=== PATIENT | male | born 1985 | race Caucasian/White ===

== ENCOUNTER 2018-07-08 18:02 | Emergency (ER) | payer SELFPAY ==
[~2018-07-08 18:02] MED LIST: CIPR-344 PO; HYDR-653 PO; METR-1 PO; OXYC-865 PO; PHEN200T32 PO
--- NOTE | 2018-07-08 18:06 | ER Report ---
History and Physical Time Seen By MD: 18:06 (GARRY TEJEDA DO) HPI/ROS CHIEF COMPLAINT: Right ankle injury HISTORY OF PRESENT ILLNESS: 32-year-old male was walking on some ice [place] when he slipped and fell. He notes his ankles rotated outward to 90 from normal. He's having severe ankle pain. He rates it as a 9/10 throbbing in nature. He is unable to bear any weight on it. He denies any other injuries. He denies head impact, neck pain, chest pain, shortness of breath. Patient has an abrasion to his left knee. Patient reports his last tetanus shots up-to-date. (GARRY TEJEDA DO) Allergies: Coded Allergies: No Known Drug Allergies (Unverified , 07/08/18) Home Meds Active Scripts Hydrocodone Bit/Acetaminophen (HYDROCODON-ACETAMINOPHEN 5-325) 1 Each Tablet, 1- 2 EACH PO Q4-6H PRN for PAIN, #20 TAKE ONE TABLET BY MOUTH EVERY 4-6 HOURS NEEDED FOR PAIN Prov:GARRY TEJEDA DO 07/08/18 Reviewed Nurses Notes: Yes Old Medical Records Reviewed: Yes (GARRY TEJEDA DO) Hx Smoking: Yes Smoking Status: Current: Some Days Smoker Exposure to Second Hand Smoke?: Yes Hx Substance Use Disorder: No Hx Alcohol Use: No (GARRY TEJEDA DO) Constitutional Vital Sign - Last 24 Hours 07/08/18 07/08/18 07/08/18 07/08/18 18:11 18:15 18:30 18:32 Temp 98.0 Pulse 108 94 Resp 16 B/P (MAP) 148/101 (117) 148/101 126/89 (101) Pulse Ox 97 98 O2 Delivery Room Air 07/08/18 19:00 B/P (MAP) 135/94 (108) ([facility] Physical Exam Vital signs stable, afebrile, pulse ox normal General Appearance: The patient is alert, has no immediate need for airway protection and no current signs of toxicity. Palpation of the head and neck reveal no tenderness or trauma Eyes: Pupils equal and round no injection. Respiratory: Chest is non tender, lungs are clear to auscultation. No chest wall tenderness Cardiac: regular rate and rhythm Gastrointestinal: Abdomen is soft and non tender, no masses, bowel sounds normal. Musculoskeletal: Neck: Neck is supple and non tender. No tenderness in the midline Extremities have full range of motion and are non tender. There is obvious deformity of the right ankle with external rotation to 90. The foot is neurovascularly intact in all digits. Skin: No rashes or lesions. DIFFERENTIAL DIAGNOSIS: After history and physical exam differential diagnosis was considered for sprain, strain, fracture, dislocation, contusion (GARRY TEJEDA DO) Medical Decision Making EKG/Imaging Imaging X-ray: Three-view right ankle was obtained. I viewed the images myself on the PACS system. My interpretation of the images is: Trimalleolar fracture with posterior and lateral dislocation of the talus. The radiologist interpretation had no clinically significant variation from this interpretation. X-ray: Two-view postreduction right ankle was obtained. I viewed the images m yself on the PACS system. My interpretation of the images is: There is still posterior dislocation of the talus.. The radiologist interpretation had no clinically significant variation from this interpretation. X-ray: Two-view postreduction right ankle was obtained. I viewed the images myself on the PACS system. My interpretation of the images is: There is normal alignment. The radiologist interpretation had no clinically significant variation from this interpretation. (GARRY TEJEDA DO) ED Course/Re-evaluation Clinical Indication for ER IV: Hydration, IV Access ED Course Patient was admitted to an examination room. H&P was done. The differential diagnoses was considered. On clinical examination. Patient is obvious dislocation and deformity of his right ankle. Mechanism of injury would suggest a trimalleolar fracture. Diagnostic x-rays confirm findings. The right foot is neurovascularly intact. Procedure: Procedural sedation. A pre-sedation evaluation was completed on the patient at 1935. Patient is an appropriate candidate for procedural sedation. The risks of the sedation were discussed with the patient. A time out was completed. The patient was reevaluated immediately prior to initiation of sedation. The patient was sedated with ketamine 100 mg. The patient was monitored with continuous pulse oximetry and material handler 1st shift. There were no complications and no significant hypoxemia. I remained at the bedside for the sedation. The total time I spent in the procedural sedation was 20 minutes. Post sedation evaluation: Patient was alert and cooperative, hemodynamically stable with appropriate respiratory status, temperature and pain control without ongoing nausea and vomiting. Procedure: Procedural sedation. A pre-sedation evaluation was completed on the patient at 2045. Patient is an appropriate candidate for procedural sedation. The risks of the sedation were discussed with the patient. A time out was completed. The patient was reevaluated immediately prior to initiation of sedation. The patient was sedated with propofol 150 mg IV. The patient was monitored with continuous pulse oximetry and material handler 1st shift. There were no complications and no significant hypoxemia. I remained at the bedside for the sedation. The total time I spent in the procedural sedation was 20 minutes. Post sedation evaluation: Patient was alert and cooperative, hemodynamically stable with appropriate respiratory status, temperature and pain control without ongoing nausea and vomiting. Decision to Disposition Date: Jul 08, 2018 Decision to Disposition Time: 19:08 (GARRY TEJEDA DO) ED Course Procedure: Dislocation and trimalleolar fracture reduction. The right ankle was reduced in the usual fashion without complications. Post reduction the patient's neurovascular exam is normal. Post reduction x-ray demonstrates reduction of the joint to the anatomic position. The procedure was performed by myself and Dr. Tejeda. ([facility]) Depart Departure Latest Vital Signs Vital Signs Date Time Temp Pulse Resp B/P (MAP) Pulse Ox O2 Delivery O2 Flow Rate FiO2 07/08/18 19:00 135/94 (108) 07/08/18 18:32 94 98 07/08/18 18:15 98.0 16 Room Air ([facility] Impression: Primary Impression: Trimalleolar fracture of ankle, closed Additional Impression: Ankle dislocation Condition: Improved Disposition: HOME OR SELF-CARE Referrals: MAIKEL HERRERA MD,ALLYSON Santana MD New Scripts Hydrocodone Bit/Acetaminophen (HYDROCODON-ACETAMINOPHEN 5-325) 1 Each Tablet 1-2 EACH PO Q4-6H PRN for PAIN, #20 TAKE ONE TABLET BY MOUTH EVERY 4-6 HOURS NEEDED FOR PAIN Prov: GARRY TEJEDA DO 07/08/18 Patient Instructions: Ankle Fracture (DC) Additional Instructions: No weightbearing, you must use crutches Contact [facility] tomorrow for a urgent follow-up appointment on Monday or Monday. Call [phone], your ankle most likely need surgery Problem Qualifiers Primary Impression: Trimalleolar fracture of ankle, closed Encounter type: initial encounter Laterality: right Qualified Codes: S82.851A - Displaced trimalleolar fracture of right lower leg, initial encounter for closed fracture Additional Impression: Ankle dislocation Encounter type: initial encounter Laterality: right Qualified Codes: S93.04XA - Dislocation of right ankle joint, initial encounter GARRY TEJEDA DO Jul 08, 2018 18:06 [facility]- Jul 08, 2018 20:05
[2018-07-08] MEDS ORDERED: ONDANSETRON 4 MG/2 ML VIAL IVP ONE (18:15)
[2018-07-08] MEDS ORDERED: fentaNYL CITR 100 MCG/2 ML AMP IVP ONE ×2 (18:15→20:55)
[2018-07-08] MEDS ORDERED: LOR5/325 PO (19:09)
[2018-07-08] MEDS ORDERED: KETAMINE HCL-NS 50 MG/5 ML SYR IVP ONE (19:20)
--- NOTE | 2018-07-08 19:29 | RADIOLOGY IMAGING REPORT ---
FACILITY: [facility] - [place], [place] PATIENT NAME: Dano Garza : 1985 MR: [id number] V: [id number] EXAM DATE: ORDERING PHYSICIAN: GARRY BUNCH TECHNOLOGIST: Location: [facility] Patient: Dano Garza : 1985 Visit/Account:[id number] Date of Sevice: 07/08/2018 3 views right ankle INDICATION: Fall. Ankle pain and deformity. COMPARISON: None Available FINDINGS: 3 views of the right ankle are obtained. There is a posterior tibiotalar joint dislocation identified . In addition to the alignment abnormality, there is a trimalleolar fracture pattern identified. An o bliquely oriented fracture is seen to involve the distal shaft of the fibula extending to the fibular malleolus with medial and posterior displacement of the distal fracture fragment. There is a comminu glenny fracture involving the medial malleolus and there is felt to be an impacted fracture of the poste rior malleolus with posterior and superior displacement of the fracture fragment. There is soft tissu e swelling surrounding the ankle and there is a joint effusion. No additional fractures. IMPRESSION: 1. Posterior right tibiotalar joint dislocation with a trimalleolar fracture as detailed above. 2. Soft tissue swelling with a joint effusion. Report Dictated By: Kenn Sheehan at 07/08/2018 7:22 PM Report E-Signed By: Kenn Sheehan at 07/08/2018 7:26 PM WSN:[id number]
[2018-07-08] MEDS ORDERED: NS(*) 0.9% 1000 ML BAG 1,000 ML IV ONE (19:35)
[2018-07-08] MEDS ORDERED: NS(*) 0.9% 500 ML BAG 500 ML ONE (19:37)
[2018-07-08] MEDS ORDERED: ACET/HYDROC 5/325MG TH ER ONLY 2 TAB/BOTTLE PO ONE ×2 (20:10)
[2018-07-08] MEDS ORDERED: NS(*) 0.9% 500 ML BAG 500 ML IV ONE (20:30)
--- NOTE | 2018-07-08 20:30 | RADIOLOGY IMAGING REPORT ---
FACILITY: [facility] - [place] PATIENT NAME: Dano Garza : 1985 MR: [id number] V: [id number] EXAM DATE: [id number] ORDERING PHYSICIAN: GARRY BUNCH TECHNOLOGIST: Location: [facility] Patient: Daon Garza : 1985 Visit/Account:[id number] Date of Sevice: 07/08/2018 EXAMINATION: Right ankle 2 views HISTORY: Post reduction COMPARISON: Prior study of earlier today. FINDINGS: No significant change since the prior exam. There is persistent posterior dislocation of the talus r elative to the distal tibia. Stable displaced fractures of the medial and lateral malleoli as well a s the posterior malleolus of the distal tibia. No other new osseous findings. Surrounding soft tissue swelling with new overlying splint material. IMPRESSION: No change from the prior exam. Trimalleolar fracture of the right ankle with stable pos terior dislocation of the talus relative to the distal tibia. Report Dictated By: Sanford Valentin MD at 07/08/2018 8:24 PM Report E-Signed By: Sanford Valentin MD at 07/08/2018 8:26 PM WSN:[id number]
[2018-07-08] MEDS: PROPOFOL EMUL 10MG/ML 20 ML VL IVP ONE (20:46)
[2018-07-08] MEDS ORDERED: HYDROMORPHONE HCL 1 MG/ML SYRINGE IVP ONE (21:40)
--- NOTE | 2018-07-08 21:47 | RADIOLOGY IMAGING REPORT ---
FACILITY: [facility] PATIENT NAME: Dano Garza : 1985 MR: [id number] V: [id number] EXAM DATE: ORDERING PHYSICIAN: GARRY BUNCH TECHNOLOGIST: Location: [facility] - [place], [place] Patient: Dano Garza : 1985 Visit/Account:[id number] Date of Sevice: 07/08/2018 Examination: ANKLE 2 VIEW RIGHT Comparison: Earlier the same day. History: post reduction Findings: Significantly improved postreduction alignment of the tibiotalar joint; tibiotalar alignmen t is now within normal limits. Medial malleolus fracture is in near-anatomic alignment. Persistent but significantly decreased displacement of the right fibula diametaphysis oblique fractur e. Persistent but decreased mild displacement of the posterior malleolus fracture fragments. Diffuse soft tissue swelling. IMPRESSION: Improved postreduction alignment of the right ankle as described above. Report Dictated By: Edward Khan MD at 07/08/2018 9:39 PM Report E-Signed By: Edward Khan MD at 07/08/2018 9:43 PM WSN:[id number]
[2018-07-08 22:20] VITALS: BP 144/80
[2018-07-09] MEDS ORDERED: CEPH500T7 PO (20:08)
[2018-07-09] MEDS ORDERED: KET10 PO (20:09)
[2018-07-09] MEDS ORDERED: OXYC5TAB38 PO (20:13)
[2018-07-09] MEDS ORDERED: TRAM-420 PO (20:14)
[2018-07-09] MEDS ORDERED: ACET500T68 PO (20:15)
== END 2018-07-08 22:44 | disposition home or self-care (01) ==
LOC: ER 18:11
DX: S82.851A Displaced trimalleolar fracture of right lower leg, initial encounter for closed fracture (principal); S93.04XA Dislocation of right ankle joint, initial encounter; W00.0XXA Fall on same level due to ice and snow, initial encounter
CPT/HCPCS: 27818; 73600; 73610; 96361; 96374; 96375; 96376; 99152; 99153; 99285; J1170; J2405; J2704; J3010; J3490; J7030; J7040

== ENCOUNTER 2018-07-09 16:00 | Day surgery (SDC) | payer SELFPAY ==
[2018-07-09] VITALS (8 sets, daily range): BP systolic 141–164; BP diastolic 89–110
[~2018-07-09 16:00] MED LIST changes: +LOR5/325 PO
[2018-07-09] MEDS ORDERED: NORMOSOL R SOLN(*) 1000 ML BAG 1,000 ML IV PRN (16:40)
[2018-07-09] MEDS ORDERED: FAMOTIDINE 20 MG TAB PO ONE (16:40)
[2018-07-09] MEDS ORDERED: CELECOXIB 200 MG CAP PO ONE (16:40)
[2018-07-09] MEDS ORDERED: LIDOCAINE/SOD BICARB 8.4% SYR ID ONE (16:40)
[2018-07-09] MEDS ORDERED: ceFAZolin(*) 1 GM VIAL 1 GM in NS(*) 0.9% 100 ML ADDVANT BAG 100 ML IVPB ONE (16:40)
[2018-07-09] MEDS ORDERED: MIDAZOLAM 2 MG/2 ML VIAL IVP PRN (17:00)
[2018-07-09] MEDS: fentaNYL CITR 100 MCG/2 ML AMP IVP PRN ×2 (17:02→17:03)
[2018-07-09] MEDS ORDERED: fentaNYL CITR 250 MCG/5 ML AMP ONE (17:13)
[2018-07-09] MEDS ORDERED: PROPOFOL EMUL(*) 10MG/ML 20 ML 20 ML ONE (17:14)
[2018-07-09] MEDS ORDERED: LIDOCAINE 2% IV 100 MG/5ML SYR ONE (17:14)
[2018-07-09] MEDS ORDERED: EPINEPHrine HCL 1 MG/ML AMP ONE (17:15)
[2018-07-09] MEDS ORDERED: DEXAMETHASONE SOD PHOS 10MG/ML ONE (17:15)
[2018-07-09] MEDS ORDERED: ROPIVACAINE 0.5% 20 ML VIAL ONE (17:16)
[2018-07-09] MEDS ORDERED: ROPIVACAINE 0.2% 20 ML VIAL ONE (17:16)
[2018-07-09] MEDS ORDERED: LIDOCAINE MPF 1% 5 ML VIAL ONE (17:20)
[2018-07-09] MEDS ORDERED: DEXAMETHASONE SOD 4 MG/ML VIAL ONE (17:43)
[2018-07-09] MEDS ORDERED: ONDANSETRON 4 MG/2 ML VIAL ONE (17:43)
[2018-07-09] MEDS ORDERED: KETAMINE HCL 200 MG/20 ML MDV ONE ×2 (17:44→18:42)
[2018-07-09] MEDS ORDERED: KETOROLAC 30 MG/ML VIAL ONE (19:34)
[2018-07-09] MEDS ORDERED: PROMETHAZINE 25 MG/ML 1 ML AMP ONE (19:50)
[2018-07-09] MEDS ORDERED: fentaNYL CITR 100 MCG/2 ML AMP ONE (19:54)
[2018-07-09] MEDS ORDERED: CEPH500T7 PO (20:08)
[2018-07-09] MEDS ORDERED: KET10 PO (20:09)
[2018-07-09] MEDS ORDERED: OXYC5TAB38 PO (20:13)
[2018-07-09] MEDS ORDERED: TRAM-420 PO (20:14)
[2018-07-09] MEDS ORDERED: ACET500T68 PO (20:15)
[2018-07-09] MEDS ORDERED: ACETAMINOPHEN 500 MG TAB ONE (20:45)
[2018-07-09] MEDS ORDERED: oxyCODONE HCL 5 MG CAP ONE (20:45)
--- NOTE | 2018-07-10 02:38 | CARSON H&P ---
DATE OF ADMISSION: July 09, 2018 HISTORY OF PRESENT ILLNESS The patient is 32-year-old male who presented to the clinic with right ankle complaints. He presents in a splint. He reports yesterday afternoon he slipped off the curb on ice, injured his right ankle. There were deformity and pain. He was seen in the ER, where a closed reduction was performed of a trimalleolar fracture. ER report shows him to be neurovascularly intact. He denies any obvious numbness or tingling. He is in some mild distress, and he reports the ankle hurts a lot. He reports he had some oatmeal at 11 o'clock and has drunk some iced tea, about a cup through the afternoon when he takes his pills, and the last was at 3:30. ALLERGIES None reported. CURRENT MEDICATIONS Hydrocodone. PAST MEDICAL HISTORY Patient denies. PAST SURGICAL HISTORY Facial surgery for orbital fracture, February 2017. PHYSICAL EXAMINATION VITALS: Blood pressure is 128/81, weight 160, height 5 feet 11 inches. GENERAL: Patient is alert and oriented x3. He speaks clearly, answers questions appropriately. CHEST: Rises and falls with inspiration and expiration. No obvious wheezes or rales. ABDOMEN: Soft, nontender. Active bowel sounds noted. EXTREMITIES: Right lower extremity had a splint. This was opened up. There was some mild swelling, but there was no tenting of the skin. There are still some wrinkles around the ankle. The sensation is grossly intact. He can wiggle his toes. He did not want to move his ankle secondary to discomfort. He reports no knee complaints. Capillary refill is less than two seconds. Foot is warm. X-rays are reviewed. Trimalleolar fracture is noted of the right ankle. ASSESSMENT AND PLAN I went over the findings with him and his mother and friend. They voiced understanding. Recommending open reduction and internal fixation. They would like to do this as soon as possible. We discussed waiting to let some more of the swelling calm down, but I think this might actually increase over the next day or two. They understand the risks of proceeding early, with some skin issues, but they would like to have it fixed sooner rather than later. Plan for open reduction and internal fixation, non-weightbearing for six weeks. They understand that the rehabilitation time is about four to six months. They voice understanding, accept the risks and benefits, and desire to proceed with planning. MTDD
--- NOTE | 2018-07-10 03:18 | OPERATIVE REPORT 1 ---
EVENT DATE: July 09, 2018 SURGEON: Biju Smith MD ANESTHESIOLOGIST: Reid Hightower MD ANESTHESIA: Right popliteal block followed by general. PREOPERATIVE DIAGNOSIS Right ankle trimalleolar fracture. POSTOPERATIVE DIAGNOSIS Right ankle trimalleolar fracture. PROCEDURE PERFORMED Right ankle trimalleolar fracture; open reduction and internal fixation of fibula and medial malleolus fractures. IMPLANTS Eight-hole Synthes one-third tubular plate, two 45 mm partially threaded 4.0 screws, two fully threaded cancellous screws and five fully threaded cortical screws. ESTIMATED BLOOD LOSS Less than 5 mL. SPECIMENS None. COMPLICATIONS None. DESCRIPTION OF PROCEDURE Patient received appropriate preoperative antibiotic, was brought to the OR, where Dr. Hightower performed right popliteal block followed by general anesthesia. Right thigh tourniquet placed. Right lower extremity prepped and draped in the usual sterile fashion and exsanguinated. Tourniquet inflated to 250 mmHg. Straight lateral approach was made to the fibula. Sharp dissection was carried out of the skin down to the level of the bone distally, brought this proximally for approximately 10 cm. We took care to protect the anterior superficial peroneal nerve and the posterior sural nerve. We dissected further down to the bone. This was delineated with Mo elevator and sharp dissection. We irrigated the hematoma and debris and performed a closed reduction, held this in place with a clamp. We placed one lag screw in standard AO fashion from anterior- superior to posterior-inferior, directly visualizing that the two threads came out posterior-inferiorly. This further compressed our fracture, and the clamp was removed and this was stable. I then placed our eight-hole plate with a slight bend distally. The second from the last hole was filled with a fully threaded cancellous screw. The hole above this, three from the bottom, was then filled with a fully threaded cortical screw. We then placed three fully threaded cortical screws in the fifth, sixth, and seventh hole from the distal end in standard AO fashion, achieving good cortices with good compression. I did not feel we needed to fill the most proximal hole. The most distal hole was then filled with a fully threaded cancellous screw, and we visualized this fluoroscopically and were satisfied with the reduction and placement of our hardware. We then copiously irrigated these wounds, closed the deep fascia with 0 Vicryl followed by 3-0 Vicryl for the subcutaneous tissues. We then went to the medial malleolus, made a direct approach this with care taken to protect the saphenous nerve and vein. Sharp dissection was carried out of the skin. We went through the periosteum and immediately noted the rupture here. There was primarily a transverse fracture at the level of the anteromedial joint. There also appeared to be a nondisplaced vertical fracture proceeding more superiorly and slightly posteriorly. However, on visualizing this, I felt we had an adequate reduction. I did not want to further dissect, so we maintained most of the soft tissue attachment. I was able to make a small rent in the capsular tissue at the anteromedial corner and saw that it was reduced. I then placed two 2.5 mm drill bits in parallel fashion and visualized it fluoroscopically and was satisfied with the reduction and placement of the hardware. I then placed two 45 mm/4.0 mm partially threaded screws with good compression and maintenance of our reduction. This was directly visualized and visualized fluoroscopically, AP, mortise and lateral. We were satisfied with reduction and placement of hardware. The posterior malleolus fracture was satisfactorily reduced in that there was no significant involvement of the articular surface. I then copiously irrigated these wounds medially, closed the periosteum with 2-0 Vicryl followed by 3-0 Vicryl for subcutaneous tissues. We then utilized cata to close both skin incisions. We then cleaned the wounds, applied Xeroform, then 4x4s, then two 4-inch soft rolls and two 6-inch soft rolls and a posterior splint and a U-splint in neutral position with appropriate padding and molding. Tourniquet was let down. Patient was extubated and taken to recovery in stable condition. Keflex 500 mg p.o. t.i.d., #9; Tylenol 1000 mg p.o. every eight hours x48 hours, then p.r.n.; Toradol, #12, and tramadol, #20, and OxyIR, #15, for pain. I went over these with the nursing staff as well as the patient prior to the procedure and with mother postoperatively. The patient will be non- weightbearing. Ice and elevation is recommended. [facility]
== END 2018-07-09 20:54 | disposition home or self-care (01) ==
LOC: OR 16:00
PROVIDERS: ATTEND Orthopaedic Surgery
DX: S82.851A Displaced trimalleolar fracture of right lower leg, initial encounter for closed fracture (principal); W00.0XXA Fall on same level due to ice and snow, initial encounter
CPT/HCPCS: 27822; J0171; J0690; J1100; J1885; J2001; J2250; J2405; J2550; J2704; J2795; J3010; J3490; J7050; 76000; 76942; C1713

== ENCOUNTER 2018-12-18 00:32 | Emergency (ER) | payer SELFPAY ==
[~2018-12-18 00:32] MED LIST changes: +ACET500T68 PO; +CEPH500T7 PO; +KET10 PO; +OXYC5TAB38 PO; +TRAM-420 PO
[2018-12-18 00:33] VITALS: BP 140/89
--- NOTE | 2018-12-18 00:34 | ER Report ---
History and Physical Time Seen By MD: 00:34 HPI/ROS CHIEF COMPLAINT: Clearance for [facility] HISTORY OF PRESENT ILLNESS: Patient is an otherwise healthy 33-year-old male who was brought in by the [facility] [employer] after he was found per disorderly conduct after consuming alcohol this evening. Is no history of tr auma or injury the patient himself is cooperative but has no complaints or concerns. He seems to understand why he is here. Review of the electronic medical record shows no chronic medical problems only that he was treated for a left trimalleolar fracture in the recent past. REVIEW OF SYSTEMS: Neuro: No headache Respiratory: No cough, no dyspnea. Cardiovascular: No chest pain, no palpitations. Gastrointestinal: No vomiting, no abdominal pain. Musculoskeletal: No back pain. Allergies: Coded Allergies: No Known Drug Allergies (Unverified , 07/09/18) Home Meds Active Scripts Hydrocodone Bit/Acetaminophen (HYDROCODON-ACETAMINOPHEN 5-325) 1 Each Tablet, 1- 2 EACH PO Q4-6H PRN for PAIN, #20 TAKE ONE TABLET BY MOUTH EVERY 4-6 HOURS NEEDED FOR PAIN Prov:GARRY BUNCH DO 07/08/18 Reported Medications Acetaminophen (TYLENOL EXTRA STRENGTH) 500 Mg Tablet, 2 TAB PO Q8H for PAIN for 2 Days, TAB 18 Tramadol Hcl (TRAMADOL HCL) 50 Mg Tablet, 1-2 TAB PO Q6H for PAIN, #20 TAB 07/09/18 Oxycodone Hcl (OXYCODONE HCL) 5 Mg Tablet, 5 MG PO Q4-6H for PAIN, #15 18 Ketorolac Tromethamine (KETOROLAC TROMETHAMINE) 10 Mg Tab, 10 MG PO Q6-8H for PAIN, #12 TAB 07/09/18 Cephalexin 500 Mg Tab (KEFLEX 500 MG TAB) 500 Mg Tablet, 500 MG PO TID for 3 Days, #9 TAB 07/09/18 Past Medical/Surgical History Left ankle fracture Hx Smoking: Yes Smoking Status: Current: Some Days Smoker Exposure to Second Hand Smoke?: Yes Hx Substance Use Disorder: No Hx Alcohol Use: No Constitutional Vital Sign - Last 24 Hours 12/18/18 00:33 Pulse 97 Resp 12 B/P (MAP) 140/89 Pulse Ox 91 O2 Delivery Room Air Physical Exam General Appearance: The patient is alert, has no immediate need for airway protection and no current signs of toxicity. [ ] Eyes: Pupils equal and round no injection. External ocular muscles show horizontal nystagmus with multiple beats per for fatigue, no vertical nystagmus no jaundice Respiratory: Chest is non tender, lungs are clear to auscultation. Cardiac: regular rate and rhythm [ ] Gastrointestinal: Abdomen is soft and non tender, no masses, bowel sounds normal. Musculoskeletal: Neck: Neck is supple and non tender. Extremities have full range of motion and are non tender. Medical Decision Making ED Course/Re-evaluation ED Course Patient medically cleared for discharge to the custody of the [facility] please at this time. Decision to Disposition Date: December 18, 2018 Decision to Disposition Time: 00:39 Depart Departure Latest Vital Signs Vital Signs Date Time Temp Pulse Resp B/P (MAP) Pulse Ox O2 Delivery O2 Flow Rate FiO2 12/18/18 00:33 97 12 140/89 91 Room Air Impression: Primary Impression: Alcohol intoxication Condition: Condition Unchanged Disposition: [facility] TO USP/CORRECTIONAL F Patient Instructions: GENERAL ER DISCHARGE INSTRUCTIONS Problem Qualifiers Primary Impression: Alcohol intoxication Complication of substance-induced condition: uncomplicated Qualified Codes: F10.920 - Alcohol use, unspecified with intoxication, uncomplicated MAGDALENA NEWMAN MD December 18, 2018 00:34
== END 2018-12-18 01:00 ==
LOC: ER 00:51
DX: F10.920 Alcohol use, unspecified with intoxication, uncomplicated (principal)
CPT/HCPCS: 99281